=== PATIENT | female | born 1960 | race Caucasian/White ===

== ENCOUNTER 2020-07-04 14:07 | Emergency (ER) | payer BC ==
--- NOTE | 2020-07-04 14:13 | EDM.PDOC ---
ED HPI GENERAL MEDICAL PROBLEM - General Chief Complaint: Upper Extremity Injury/Pain Stated Complaint: right hand laceration Time Seen by Provider: 07/04/20 14:10 Source of Information: Reports: Patient, Old Records ([facility] chart/EMR) History Limitations: Reports: No Limitations - History of Present Illness INITIAL COMMENTS - FREE TEXT/NARRATIVE: The patient was brought to the emergency room via private automobile by her son for evaluation of a laceration of her right thumb, which occurred after she got it caught in in some equipment at home at about 1:15 PM this afternoon. She did rinse out the laceration with tap water with no medications to this point. The patient is right-handed with no previous injury to this extremity and only mild right thumb numbness at this time. Note that the patient did become somewhat dizzy secondary to this laceration with a minor fall with no significant injury, etc. The patient denies any chest pain/pressure, heart flutter, orthostasis, orthopnea, diaphoresis, paresthesias, recent decreased exercise tolerance, or any other anginal-type symptoms. No recent history of abdominal pain, heartburn, nausea, diarrhea, melena, gross hematochezia, or any food intolerance, including fatty foods, etc.. She denies any gross hematuria, colic, or other UTI symptoms. The patient also denies any recent fever, cough, wheezing, dyspnea, etc. with the patient completing her recent COVID-19 quarantine on 06/30/2020. No history of recent headaches, visual changes, diplopia, change in mental status, or other change in neurological status. Onset: Today, Sudden Onset Date: 07/04/20 Onset Time: 13:15 Duration: Constant Location: Reports: Upper Extremity, Right. Denies: Head, Face, Neck, Chest, Abdomen, Back, Pelvis, Upper Extremity, Left, Radiates to Quality: Reports: Same as Previous Episode, Throbbing Severity: Moderate Improves with: Reports: None Worsens with: Reports: None Context: Reports: Trauma (As above) Associated Symptoms: Denies: Confusion, Chest Pain, Cough, Diaphoresis, Fever/Chills, Headaches, Loss of Appetite, Malaise, Nausea/Vomiting, Shortness of Breath, Syncope, Weakness Treatments INTERNATIONAL MARKETING COORDINATOR: Reports: Dressing(s), Other (see below) (As above) Right Finger-Thumb Pain Score (Numeric/FACES): 8 - Related Data Allergies Allergy/AdvReac Type Severity Reaction Status Date / Time No Known Allergies Allergy Verified 07/04/20 14:20 Home Meds: Home Meds Amoxicillin/Clavulanate K [Augmentin 875-125 MG] 1 tab PO BIDMEALS #14 tablet 07/04/20 [Rx] Calcium Carbonate [Calcium] 1 tab PO DAILY 07/04/20 [History] Cholecalciferol (Vitamin D3) [Vitamin D3] 2 tab PO DAILY 07/04/20 [History] Multivit-Min/FA/Lycopen/Lutein [Centrum Silver Tablet] 1 tab PO DAILY 07/04/20 [History] Omeprazole 20 mg PO DAILY 07/04/20 [History] Tolterodine [Detrol] 4 mg PO DAILY 07/04/20 [History] atorvaSTATin [Lipitor] 10 mg PO DAILY 07/04/20 [History] Past Medical History HEENT History: Reports: Cataract, Impaired Vision, Other (See Below) Other HEENT History: Retinal hemorrhage of the right eye requiring surgeries as below. Patient was glasses. Cardiovascular History: Reports: High Cholesterol Respiratory History: Reports: Intubation, Difficult, Intubation, Previous, Other (See Below) Other Respiratory History: History of esophageal tear during intubation for right eye surgery in November 2003 with no surgery required, however extended hospitalization. Gastrointestinal History: Reports: Colon Polyp, Fatty Liver, GERD, Hiatal Hernia, PUD, Other (See Below) Other Gastrointestinal History: Tubular adenoma removed by colonoscopy as below. Previous history of C. difficile colitis. History of LFTs elevation likely secondary to fatty liver. Genitourinary History: Reports: Urinary Incontinence Other Genitourinary History: Urinary stress incontinence. : 3 Para: 3 Other LAUNDRY FOLDER History: Menopause at age 54. Full term without complications during pregnancies or deliveries. Musculoskeletal History: Reports: Arthritis, Osteoarthritis Psychiatric History: Reports: Other (See Below) Other Psychiatric History: Chronic insomnia. Endocrine/Metabolic History: Reports: Other (See Below) - Infectious Disease History Infectious Disease History: Reports: C-Difficile (C. difficile colitis in December 2003.), Novel Coronavirus (May 2020 with end of quarantine on 06/30/2020.) - Past Surgical History HEENT Surgical History: Reports: Cataract Surgery, Laser Surgery, Other (See Below) Other HEENT Surgeries/Procedures: Some confusion in cataract surgery dates per medical records with initial right cataract surgery in May 2004 with subsequent cataract surgery in 2005? Right eye laser treatments I of retinal bleeds in August 2002 with subsequent vitrectomy of the right eye in November 2003 resulting in an esophageal tear as above during intubation. Left cataract surgery in 2006. GI Surgical History: Reports: Colonoscopy, Polypectomy, Other (See Below) Other GI Surgeries/Procedures: Colonoscopy with polypectomy on 09/16/2015. Female Surgical History: Reports: Tubal Ligation - Past Imaging History Past Imaging History: Reports: Mammogram (Last mammogram on 05/20/2020.), Ultrasound (Soft tissue ultrasound of the neck on 02/03/2020.), Upper GI X- Ray/Series (Upper GI on 09/23/2009.) Social & Family History - Family History Cardiac: Reports: High Cholesterol, Hypertension, Other (See Below) Other Cardiac Family History: Father with hypertension. Parents with hype rlipidemia. Benign heart murmur in mother and son. GI: Reports: Colon Polyps, Other (See Below) Other GI Family History: Mother with benign colonic polyps/tubular adenoma. : Reports: Renal Disease/Insufficiency, Other (See Below) Other Family History: Father with renal insufficiency. Neurological: Reports: Other (See Below) Other Neurological Family History: Sister with benign brain lesion/? Chiari malformation. - Tobacco Use Tobacco Use Status *Q: Never Tobacco User Tobacco Use Within Last Twelve Months: No Used Tobacco, but Quit: No Smoking Cessation Information Provided To Patient: No Second Hand Smoke Exposure: No Second Hand Smoke Education Provided: No - Living Situation & Occupation Living situation: Reports: (1981, 3 children), with Family Occupation: Unemployed Review of Systems - Review of Systems Review Of Systems: Comprehensive ROS is negative, except as noted in HPI. ED EXAM, GENERAL - Physical Exam Exam: See Below Exam Limited By: No Limitations General Appearance: Alert, WD/WN, No Apparent Distress Head: Atraumatic, Normocephalic. No: Facial Swelling, Facial Tenderness, Sinus Tenderness Neck: Normal Inspection, Supple, Non-Tender, Full Range of Motion. No: Lymphadenopathy (L), Lymphadenopathy (R), Thyromegaly Respiratory/Chest: No Respiratory Distress, Lungs Clear, Normal Breath Sounds, No Accessory Muscle Use, Chest Non-Tender. No: Pleural Rub, Retractions Cardiovascular: Normal Peripheral Pulses, Regular Rate, Rhythm, No Edema, No Gallop, No JVD, No Murmur, No Rub. No: Gallop/S3, Gallop/S4, Friction Rub Peripheral Pulses: 2+: Radial (L), Radial (R) GI/Abdominal: Normal Bowel Sounds, Soft, Non-Tender, No Organomegaly, No Distent ion, No Abnormal Bruit, No Mass, Pelvis Stable. No: Guarding (Female) Exam: Deferred Rectal (Female) Exam: Deferred Back Exam: Normal Inspection, Full Range of Motion. No: CVA Tenderness (L), CVA Tenderness (R), Muscle Spasm Extremities: Normal Range of Motion, No Pedal Edema, Normal Capillary Refill, Other (2 cm in length radial laceration of digit number one of the right hand including nail involvement. No foreign body, etc. No evidence of crepitation, dislocation, deformity, etc.). No: Non-Tender (Moderate localized tenderness over the laceration site of the right thumb), Deanna's Sign Neurological: Alert, Oriented, CN II-XII Intact, Normal Cognition, Normal Gait, No Motor/Sensory Deficits, Other (No clinical orthostasis) Psychiatric: Normal Affect, Normal Mood Skin Exam: No Rash, Wound/Incision (As above). No: Diaphoretic Lymphatic: No Adenopathy ED TRAUMA EXTREMITY PROCEDURES - Laceration/Wound Repair Right Distal Digit - 1st (Thumb) Lac/Wound Length In cm: 2.0 Appearance: Subcutaneous, Irregular, Other (Involves thumb nail and nailbed) Distal NVT: Neuro & Vascular Intact, No Tendon Injury Anesthetic Type: Local Local Anesthesia - Lidocaine (Xylocaine): 1% Plain Local Anesthetic Volume: Other (6 cc) Skin Prep: Providone-Iodine (Betadine) Saline Irrigation (cc's): 0 Exploration/Debridement/Repair: Wound Explored, In a Bloodless Field, Explored to Base, No Foreign Material Found, Multiple Flaps Aligned Closed With: Sutures Suture Size: 4-0 # of Sutures: 7 Suture Type: Nylon, Interrupted, Simple Drain Placement: No Sterile Dressing Applied: Nurse Tetanus Status Addressed: Yes Complications: No Course - Vital Signs Last Recorded V/S: Last Vital Signs Temp 36.1 C 07/04/20 14:15 Pulse 82 07/04/20 14:15 Resp 16 07/04/20 14:15 BP 111/39 L 07/04/20 14:15 Pulse Ox 99 07/04/20 14:15 Vital Signs - 24 hr 07/04/20 14:15 Temperature [ 36.1 C Temporal] Pulse, 82 Peripheral [ Left Pulse Oximetry] Respiratory 16 Rate Blood Pressure 111/39 L [Left Upper Arm ] O2 Sat by Pulse 99 Oximetry - Orders/Labs/Meds Orders: Active Orders 24 hr Category Date Time Status Fingers Thumb Rt F5 [CR] Stat Exams 07/04/20 14:19 Ordered Obtain Past Medical Record [OM.PC] Routine Oth 07/04/20 14:19 Active Labs: None Meds: Medications Discontinued Medications Generic Name Dose Route Start Last Admin Trade Name Freq PRN Reason Stop Dose Admin Lidocaine HCl 5 ml 07/04/20 14:19 07/04/20 14:53 Xylocaine-Mpf 1% INJECT 07/04/20 14:20 5 ml ONETIME ONE Administration Lidocaine HCl 5 ml 07/04/20 14:20 07/04/20 14:53 Xylocaine-Mpf 1% INJECT 07/04/20 14:21 5 ml ONETIME ONE Administration Neomycin/Polymyxin/Bacitracin 1 each 07/04/20 14:20 07/04/20 15:03 Triple Antibiotic Oint TOP 07/04/20 14:21 1 each ONETIME ONE Administration - Radiology Interpretation Free Text/Narrative:: X-rays of the right thumb, complete, shows evidence of a nondisplaced hairline proximal fracture of the distal phalanx with moderate soft tissue injury noted b ut no foreign body, dislocation, etc. Departure - Departure Time of Disposition: 15:45 Disposition: Home, Self-Care 01 Condition: Good Clinical Impression: Laceration, Peptic reflux disease Hyperlipidemia Qualifiers: Hyperlipidemia type: unspecified Qualified Code(s): E78.5 - Hyperlipidemia, unspecified Osteoarthritis Qualifiers: Osteoarthritis location: multiple joints Osteoarthritis type: primary Qualified Code(s): M89.49 - Other hypertrophic osteoarthropathy, multiple sites Open finger fracture Qualifiers: Encounter type: initial encounter Finger: thumb Phalanx: distal Fracture alignment: nondisplaced Laterality: right Qualified Code(s): S62.524B - Nondisplaced fracture of distal phalanx of right thumb, initial encounter for open fracture - Discharge Information *PRESCRIPTION DRUG MONITORING PROGRAM REVIEWED*: Not Applicable *COPY OF PRESCRIPTION DRUG MONITORING REPORT IN PATIENT JAYLA: Not Applicable Prescriptions: Amoxicillin/Clavulanate K [Augmentin 875-125 MG] 1 tab PO BIDMEALS #14 tablet Instructions: Amoxicillin; Clavulanic Acid tablets, Finger Fracture, Adult, [id number], Laceration Care, Adult, [id number], Sutures, [place], or Adhesive Wound Closure, [id number] Forms: ED Department Discharge Additional Instructions: 1. Follow up with your regular provider in 10-14 days for repeat x-rays of your right thumb and suture removal as directed. Bring these discharge instructions with you to that visit. 2. Antibacterial soap wash/soak with subsequent antibacterial dressing such as Neosporin, etc. as directed 2 times per day until the wound or laceration site completely heals. Keep the area clean and dry with activity restrictions as discussed. Never use hydrogen peroxide for wound care. 3. Tylenol 650 mg by mouth every 4 hours and/or OTC ibuprofen 2-3 tabs by mouth every 6 hours with food as directed./needed. You may stagger these medications for 48-72 hours only, which essentially means that you are receiving a pain medication about every 2 hours. 4. Immediately after this visit verify that your cellular telephone's voicemail has been activated and is empty. Also verify that your home telephone's answering machine is operating properly and has space to receive messages. Note that it is sometimes necessary for us to be able to contact you at a later date to discuss your medical care. 5. Please remember that we are ALWAYS here for you and want to answer any questions you may have. Feel free to call the hospital any time and we call you back FAWN. 6. Wear finger splint at all times with exception of wound care and bathing as discussed. 7. Take all 10 days of your Augmentin therapy, i.e., 3-day supply from the emergency room and the additional 7 days, which was sent to your pharmacy today. Diarrhea precautions with this medication as discussed. Sepsis Event Note (ED) - Focused Exam Vital Signs: Vital Signs Temp Pulse Resp BP Pulse Ox 07/04/20 14:15 36.1 C 82 16 111/39 L 99 - Problem List & Annotations (1) Open finger fracture SNOMED Code(s): 28125103 Code(s): S62.609B - FRACTURE OF UNSP PHALANX OF UNSP FINGER, INIT FOR OPN FX Status: Acute Priority: High Onset Date: 07/04/20 Annotation/Comment:: Distal phalangeal fracture representing an open fracture with initiation of A ugmentin therapy. Emergency room and additional pharmacy prescription provided. Diarrhea precautions, etc. were extensively discussed. The patient was provided a 2 little finger splint, which will be started tomorrow secondary to Neosporin finger tube gauze dressing placed by the nurse in the emergency room. Follow-up x-rays at time of suture removal as per discharge instructions. Qualifiers: Encounter type: initial encounter Finger: thumb Phalanx: distal Fracture alignment: nondisplaced Laterality: right Qualified Code(s): S62.524B - Nondisplaced fracture of distal phalanx of right thumb, initial encounter for open fracture (2) Laceration SNOMED Code(s): 032450448 Code(s): HRG5614 - Status: Acute Priority: High Onset Date: 07/04/20 Annotation/Comment:: Excellent results with laceration repair as above. Last TDAP on 07/18/2013, which was confirmed by the emergency room nurse. No need for updating at this time. Wound care, activity restrictions, etc. were extensively discussed. Close follow-up by regular provider as per discharge i nstructions. (3) Hyperlipidemia SNOMED Code(s): 52829967 Code(s): E78.5 - HYPERLIPIDEMIA, UNSPECIFIED Status: Chronic Priority: Medium Annotation/Comment:: Currently under therapy. Qualifiers: Hyperlipidemia type: unspecified Qualified Code(s): E78.5 - Hyperlipidemia, unspecified (4) Osteoarthritis SNOMED Code(s): 492353138 Code(s): M19.90 - UNSPECIFIED OSTEOARTHRITIS, UNSPECIFIED SITE Status: Chronic Priority: Medium Annotation/Comment:: Otherwise stable by patient history with no history of other injury. Qualifiers: Osteoarthritis location: multiple joints Osteoarthritis type: primary Qualified Code(s): M89.49 - Other hypertrophic osteoarthropathy, multiple sites (5) Peptic reflux disease SNOMED Code(s): 279275571 Code(s): K21.9 - GASTRO-ESOPHAGEAL REFLUX DISEASE WITHOUT ESOPHAGITIS Status: Chronic Priority: Medium Annotation/Comment:: Stable with current medical therapy. - Problem List Review Problem List Initiated/Reviewed/Updated: Yes - My Orders Last 24 Hours: My Active Orders 07/04/20 14:19 Fingers Thumb Rt F5 [CR] Stat Obtain Past Medical Record [OM.PC] Routine - Assessment/Plan Last 24 Hours: My Active Orders 07/04/20 14:19 Fingers Thumb Rt F5 [CR] Stat Obtain Past Medical Record [OM.PC] Routine Assessment:: As above Plan: As above. Extensive precautions were given to the patient, who is in agreement with the treatment plan. See Patient Instructions for further treatment and plan.
[2020-07-04] MEDS ORDERED: Bacitracin/Neomycin/Polymyxin B Oint 0.9 GM U/D Packet TOP ONE (14:20)
[2020-07-04 14:41] VITALS: BP 111/39; PULSE 82
== END 2020-07-04 15:45 | disposition home or self-care (01) ==
LOC: LL.ED 14:07 → SUPCPDRO 14:07 → LL.ED 15:45
DX: S62.524B Nondisplaced fracture of distal phalanx of right thumb, initial encounter for open fracture (principal); E78.5 Hyperlipidemia, unspecified; K27.9 Peptic ulcer, site unspecified, unspecified as acute or chronic, without hemorrhage or perforation; M89.49 Other hypertrophic osteoarthropathy, multiple sites; E78.00 Pure hypercholesterolemia, unspecified; K21.9 Gastro-esophageal reflux disease without esophagitis; Z79.899 Other long term (current) drug therapy; W23.0XXA Caught, crushed, jammed, or pinched between moving objects, initial encounter; Y92.009 Unspecified place in unspecified non-institutional (private) residence as the place of occurrence of the external cause
CPT/HCPCS: 11760; 73140-F5; 99283-25; J2001

== ENCOUNTER 2023-12-06 07:44 | Day surgery (SDC) | payer BC ==
[2023-12-06] MEDS ORDERED: Sodium Chloride 0.9% 10 ML Syringe FLUSH PRN (08:00)
[2023-12-06] MEDS: Lactated Ringers 1,000 ML IV SCH (08:18)
[2023-12-06] MEDS ORDERED: Propofol 200 MG/20 ML SDV ONE (08:19)
[2023-12-06] MEDS ORDERED: Midazolam 1 MG/ML 2 ML SDV ONE (08:19)
[2023-12-06 09:57] VITALS: BP 138/80; PULSE 69
== END 2023-12-06 10:04 | disposition home or self-care (01) ==
LOC: LL.SDS 07:44
PROVIDERS: ATTEND Surgery
DX: K21.9 Gastro-esophageal reflux disease without esophagitis (principal); N32.81 Overactive bladder; E78.2 Mixed hyperlipidemia; M65.311 Trigger thumb, right thumb; M65.331 Trigger finger, right middle finger; E78.00 Pure hypercholesterolemia, unspecified; G47.00 Insomnia, unspecified; Z86.010 Personal history of colon polyps; Z79.899 Other long term (current) drug therapy; Z98.890 Other specified postprocedural states
CPT/HCPCS: J2250; J2704; J7120